=== PATIENT | female | born 1960 | race Caucasian/White ===

== ENCOUNTER 2017-11-21 16:02 | Inpatient (IN) | payer OTHER ==
[2017-11-21] MEDS ORDERED: ACETAMINOPHEN 325 MG TAB PO (18:30)
[2017-11-21] MEDS ORDERED: AL HYDROX/MG HYDROX/SIMETH 30 ML CUP PO (18:30)
[2017-11-21] MEDS ORDERED: ZOLPIDEM 5 MG TAB PO (18:30)
[2017-11-21] MEDS ORDERED: MAGNESIUM HYDROXIDE 30ML CUP PO (18:30)
[2017-11-21] MEDS ORDERED: LORAZEPAM 2 MG INJ IV (18:30)
[2017-11-21] MEDS ORDERED: HYDROCODONE/APAP (5/325) TAB PO (18:30)
[2017-11-21] MEDS ORDERED: ONDANSETRON 4 MG INJ IV (18:30)
[2017-11-21] MEDS: SOD CHLORIDE 0.9% 1,000 ML IV (19:59)
[2017-11-21] MEDS: GABAPENTIN 100 MG CAP PO (22:16)
[2017-11-21] MEDS: QUETIAPINE 25 MG TAB PO (22:16)
[2017-11-22 06:55] LABS: ADD MAN DIFF? NO
[2017-11-22 07:07] LABS: BASOPHILS % 0.7 % (0.0-2.0); EOSINOPHILS # 0.2 10^3/ul (0.0-0.5); EOSINOPHILS % 3.7 % (0.0-7.0); HEMATOCRIT 27.6 % (37.0-47.0); HEMOGLOBIN 8.4 g/dl (12.0-16.0); LYMPHOCYTES # 1.4 10^3/ul (0.8-2.9); LYMPHOCYTES % 24.4 % (15.0-51.0); MEAN CORPUSCULAR HGB CONC 30.4 g/dl (32.0-37.0); MONOCYTE # 0.5 10^3/ul (0.3-0.9); NEUTROPHIL # 3.5 10^3/ul (1.6-7.5); NEUTROPHILS % 62.8 % (39.0-77.0); RED CELL DISTRIBUTION WIDTH 14.9 % (11.5-14.5)
[2017-11-22 07:07] LABS: WHITE BLOOD COUNT 5.6 10^3/ul (4.8-10.8)
[2017-11-22 07:11] LABS: PLATELET COUNT 189 10^3/UL (140-415); POSITIVE DIFF @See below
[2017-11-22 07:27] LABS: ALANINE AMINOTRANSFERASE 21 IU/L (13-69); ALBUMIN 3.3 g/dl (3.3-4.9); ALKALINE PHOSPHATASE 80 IU/L (42-121); ANION GAP 11 (8-16); ASPARTATE AMINO TRANSFERASE 24 IU/L (15-46); BLOOD UREA NITROGEN 36 mg/dl (7-20); CALCIUM 8.6 mg/dl (8.4-10.2); CARBON DIOXIDE 25 mmol/L (21-31); CHLORIDE 108 mmol/L (97-110); CREATININE 0.85 mg/dl (0.44-1.00); GLUCOSE 93 mg/dl (70-220); POTASSIUM 4.1 mmol/L (3.5-5.1); SODIUM 140 mmol/L (135-144); TOTAL PROTEIN 6.6 g/dl (6.1-8.1)
[2017-11-22] MEDS: GABAPENTIN 100 MG CAP PO ×2 (09:31→20:43)
[2017-11-22] MEDS: SOD CHLORIDE 0.9% 1,000 ML IV ×2 (09:32→23:06)
[2017-11-22] MEDS: NICOTINE (21 MG/24 HR) PATCH TRANSDERM (12:30)
[2017-11-22] MEDS: METHADONE 10 MG TAB PO (17:19)
[2017-11-22] MEDS: QUETIAPINE 25 MG TAB PO (20:44)
[2017-11-22] MEDS: ALBUTEROL/IPRATROPIUM (NEB) 3 ML AMP HHN (20:46)
[2017-11-23] MEDS: ALBUTEROL/IPRATROPIUM (NEB) 3 ML AMP HHN ×2 (01:23→19:45)
[2017-11-23] MEDS: SOD CHLORIDE 0.9% 1,000 ML IV (04:06)
[2017-11-23] MEDS: PANTOPRAZOLE (EC) 40 MG TAB PO (05:57)
[2017-11-23 06:03] LABS: ADD MAN DIFF? NO
[2017-11-23 06:10] LABS: WHITE BLOOD COUNT 5.7 10^3/ul (4.8-10.8)
[2017-11-23 06:10] LABS: ABNORMAL IP MESSAGE 1; BASOPHILS % 0.5 % (0.0-2.0); EOSINOPHILS # 0.2 10^3/ul (0.0-0.5); HEMATOCRIT 24.9 % (37.0-47.0); HEMOGLOBIN 7.7 g/dl (12.0-16.0); LYMPHOCYTES # 1.6 10^3/ul (0.8-2.9); LYMPHOCYTES % 28.6 % (15.0-51.0); MEAN CORPUSCULAR HEMOGLOBIN 21.3 pg (29.0-33.0); MEAN CORPUSCULAR HGB CONC 30.9 g/dl (32.0-37.0); MEAN CORPUSCULAR VOLUME 68.8 fl (82.0-101.0); MONOCYTE # 0.5 10^3/ul (0.3-0.9); MONOCYTES % 8.7 % (0.0-11.0); NEUTROPHIL # 3.4 10^3/ul (1.6-7.5); NEUTROPHILS % 58.9 % (39.0-77.0); PLATELET COUNT 226 10^3/UL (140-415); RED BLOOD COUNT 3.62 10^6/ul (4.20-5.40); RED CELL DISTRIBUTION WIDTH 15.1 % (11.5-14.5)
[2017-11-23 06:23] LABS: MEAN PLATELET VOLUME 11.5 fl (7.4-10.4); POSITIVE DIFF @See below
[2017-11-23 06:50] LABS: ANION GAP 11 (8-16); BLOOD UREA NITROGEN 32 mg/dl (7-20); CALCIUM 8.6 mg/dl (8.4-10.2); CARBON DIOXIDE 26 mmol/L (21-31); CHLORIDE 106 mmol/L (97-110); CREATININE 0.89 mg/dl (0.44-1.00); GLUCOSE 100 mg/dl (70-220); POTASSIUM 3.6 mmol/L (3.5-5.1); SODIUM 139 mmol/L (135-144)
[2017-11-23] MEDS: NICOTINE (21 MG/24 HR) PATCH TRANSDERM (08:56)
[2017-11-23] MEDS: GABAPENTIN 100 MG CAP PO ×2 (08:56→21:06)
[2017-11-23] MEDS: METHADONE 10 MG TAB PO (08:56)
[2017-11-23] MEDS: BUSPIRONE 10 MG TAB NGT ×2 (14:15→21:06)
[2017-11-23] MEDS: SOD FERRIC GLUC COMPLX 125 MG in SOD CHLORIDE 0.9% 100 ML IVPB (17:31)
[2017-11-23] MEDS: QUETIAPINE 100 MG TAB PO (21:06)
[2017-11-24] MEDS: PANTOPRAZOLE (EC) 40 MG TAB PO (05:55)
[2017-11-24] MEDS: ALBUTEROL/IPRATROPIUM (NEB) 3 ML AMP HHN (06:11)
[2017-11-24 06:57] LABS: ADD MAN DIFF? NO
[2017-11-24 07:18] LABS: BASOPHILS % 0.9 % (0.0-2.0); EOSINOPHILS # 0.2 10^3/ul (0.0-0.5); EOSINOPHILS % 4.1 % (0.0-7.0); HEMATOCRIT 25.3 % (37.0-47.0); HEMOGLOBIN 7.8 g/dl (12.0-16.0); LYMPHOCYTES # 1.5 10^3/ul (0.8-2.9); LYMPHOCYTES % 33.2 % (15.0-51.0); MEAN CORPUSCULAR HGB CONC 30.8 g/dl (32.0-37.0); MEAN PLATELET VOLUME 10.3 fl (7.4-10.4); MONOCYTE # 0.4 10^3/ul (0.3-0.9); MONOCYTES % 9.6 % (0.0-11.0); NEUTROPHIL # 2.4 10^3/ul (1.6-7.5); NEUTROPHILS % 51.8 % (39.0-77.0); PLATELET COUNT 192 10^3/UL (140-415); RED BLOOD COUNT 3.72 10^6/ul (4.20-5.40); RED CELL DISTRIBUTION WIDTH 15.2 % (11.5-14.5)
[2017-11-24 07:18] LABS: WHITE BLOOD COUNT 4.6 10^3/ul (4.8-10.8)
[2017-11-24 07:22] LABS: POSITIVE DIFF @See below
[2017-11-24 07:25] LABS: ANION GAP 10 (8-16); BLOOD UREA NITROGEN 36 mg/dl (7-20); CALCIUM 8.8 mg/dl (8.4-10.2); CARBON DIOXIDE 23 mmol/L (21-31); CHLORIDE 112 mmol/L (97-110); CREATININE 0.89 mg/dl (0.44-1.00); GLUCOSE 94 mg/dl (70-220); POTASSIUM 4.3 mmol/L (3.5-5.1); SODIUM 141 mmol/L (135-144)
[2017-11-24] MEDS: BUSPIRONE 10 MG TAB NGT ×3 (08:47→20:58)
[2017-11-24] MEDS: CITALOPRAM 20 MG TAB PO (08:47)
[2017-11-24] MEDS: NICOTINE (21 MG/24 HR) PATCH TRANSDERM (08:48)
[2017-11-24] MEDS: GABAPENTIN 100 MG CAP PO ×2 (08:48→20:58)
[2017-11-24] MEDS: METHADONE 10 MG TAB PO (08:48)
[2017-11-24] MEDS: SOD FERRIC GLUC COMPLX 125 MG in SOD CHLORIDE 0.9% 100 ML IVPB (17:54)
[2017-11-24] MEDS: QUETIAPINE 100 MG TAB PO (20:58)
[2017-11-25] MEDS: PANTOPRAZOLE (EC) 40 MG TAB PO (06:19)
[2017-11-25] MEDS: CITALOPRAM 20 MG TAB PO (09:15)
[2017-11-25] MEDS: NICOTINE (21 MG/24 HR) PATCH TRANSDERM (09:16)
[2017-11-25] MEDS: BUSPIRONE 10 MG TAB NGT ×3 (09:17→20:58)
[2017-11-25] MEDS: GABAPENTIN 100 MG CAP PO ×2 (09:17→20:58)
[2017-11-25] MEDS: METHADONE 10 MG TAB PO (09:17)
[2017-11-25] MEDS: SOD FERRIC GLUC COMPLX 125 MG in SOD CHLORIDE 0.9% 100 ML IVPB (17:20)
[2017-11-25] MEDS: QUETIAPINE 100 MG TAB PO (20:58)
[2017-11-25] MEDS ORDERED: ALBUTEROL HFA 8 GM INHALER INH (21:00)
[2017-11-25] MEDS ORDERED: QUETIAPINE 100 MG TAB PO (21:00)
[2017-11-25] MEDS ORDERED: GABAPENTIN 300 MG CAP PO (21:00)
[2017-11-25] MEDS: clonAZEPAM 0.5 MG TAB PO (22:00)
[2017-11-26] MEDS: PANTOPRAZOLE (EC) 40 MG TAB PO (05:53)
[2017-11-26] MEDS: GABAPENTIN 100 MG CAP PO ×2 (08:35→21:03)
[2017-11-26] MEDS: BUSPIRONE 10 MG TAB NGT ×3 (08:35→21:03)
[2017-11-26] MEDS: CITALOPRAM 20 MG TAB PO (08:35)
[2017-11-26] MEDS: clonAZEPAM 0.5 MG TAB PO ×2 (08:35→21:03)
[2017-11-26] MEDS: NICOTINE (21 MG/24 HR) PATCH TRANSDERM (08:35)
[2017-11-26] MEDS: METHADONE 10 MG TAB PO (08:36)
[2017-11-26] MEDS ORDERED: CITALOPRAM 20 MG TAB PO (09:00)
[2017-11-26] MEDS: QUETIAPINE 100 MG TAB PO (21:04)
[2017-11-26] MEDS ORDERED: IBUPROFEN 600 MG TAB PO (22:30)
[2017-11-27] MEDS: PANTOPRAZOLE (EC) 40 MG TAB PO (05:18)
[2017-11-27] MEDS: METHADONE 10 MG TAB PO (08:12)
[2017-11-27] MEDS: clonAZEPAM 0.5 MG TAB PO ×2 (08:12→21:30)
[2017-11-27] MEDS: BUSPIRONE 10 MG TAB NGT ×3 (08:13→21:31)
[2017-11-27] MEDS: CITALOPRAM 20 MG TAB PO (08:13)
[2017-11-27] MEDS: GABAPENTIN 100 MG CAP PO ×2 (08:13→21:31)
[2017-11-27] MEDS: NICOTINE (21 MG/24 HR) PATCH TRANSDERM (08:14)
[2017-11-27] MEDS: CELECOXIB 200 MG CAP PO (18:00)
[2017-11-27] MEDS: traMADol 50 MG TAB PO (21:30)
[2017-11-27] MEDS: QUETIAPINE 100 MG TAB PO (21:31)
[2017-11-28] MEDS: PANTOPRAZOLE (EC) 40 MG TAB PO (06:21)
[2017-11-28] MEDS: traMADol 50 MG TAB PO ×3 (06:23→20:05)
[2017-11-28] MEDS: NICOTINE (21 MG/24 HR) PATCH TRANSDERM (08:35)
[2017-11-28] MEDS: CITALOPRAM 20 MG TAB PO (08:35)
[2017-11-28] MEDS: BUSPIRONE 10 MG TAB NGT ×3 (08:35→20:05)
[2017-11-28] MEDS: GABAPENTIN 100 MG CAP PO ×2 (08:35→20:05)
[2017-11-28] MEDS: METHADONE 10 MG TAB PO (08:36)
[2017-11-28] MEDS: clonAZEPAM 0.5 MG TAB PO ×2 (09:22→20:05)
[2017-11-28] MEDS ORDERED: COLLAGENASE 5 GM (UD JAR) TOP (13:30)
[2017-11-28] MEDS: COLLAGENASE 5 GM (UD JAR) TOP (15:33)
[2017-11-28] MEDS: QUETIAPINE 100 MG TAB PO (20:05)
[2017-11-29] MEDS: traMADol 50 MG TAB PO ×2 (04:50→13:43)
[2017-11-29] MEDS: PANTOPRAZOLE (EC) 40 MG TAB PO (04:50)
[2017-11-29] MEDS: ALBUTEROL/IPRATROPIUM (NEB) 3 ML AMP HHN (05:06)
[2017-11-29] MEDS: BUSPIRONE 10 MG TAB NGT ×2 (08:30→13:43)
[2017-11-29] MEDS: GABAPENTIN 100 MG CAP PO (08:30)
[2017-11-29] MEDS: METHADONE 10 MG TAB PO (08:30)
[2017-11-29] MEDS: clonAZEPAM 0.5 MG TAB PO (08:30)
[2017-11-29] MEDS: NICOTINE (21 MG/24 HR) PATCH TRANSDERM (08:30)
[2017-11-29] MEDS: CITALOPRAM 20 MG TAB PO (08:30)
[2017-11-29] MEDS: FUROSEMIDE 20 MG TAB PO (08:31)
[2017-11-29] MEDS: COLLAGENASE 5 GM (UD JAR) TOP (09:55)
== END 2017-11-29 15:50 | disposition left against medical advice (07) | DRG 683 ==
LOC: 5EC 11-26 11:27
DX: N17.9 Acute kidney failure, unspecified (principal); E87.1 Hypo-osmolality and hyponatremia; Z59.0 Homelessness; F25.1 Schizoaffective disorder, depressive type; I10 Essential (primary) hypertension; J44.9 Chronic obstructive pulmonary disease, unspecified; F17.200 Nicotine dependence, unspecified, uncomplicated; D50.9 Iron deficiency anemia, unspecified; R60.9 Edema, unspecified; Z87.01 Personal history of pneumonia (recurrent)
CPT/HCPCS: 80048; 80053; 85025; 94640; 97116; 97161

== ENCOUNTER 2018-06-13 23:27 | Emergency (ER) | payer OTHER ==
[2018-06-14] MEDS: HYDROCODONE/APAP (10/325) TAB PO (00:23)
[2018-06-14] MEDS: LISINOPRIL 20 MG TAB PO (00:47)
[2018-06-14] MEDS: clonAZEPAM 0.5 MG TAB PO (03:00)
== END 2018-06-14 06:12 | disposition home or self-care (01) ==
LOC: E/R 23:27
DX: I16.0 Hypertensive urgency (principal); F41.9 Anxiety disorder, unspecified; I10 Essential (primary) hypertension; J44.9 Chronic obstructive pulmonary disease, unspecified; Z76.0 Encounter for issue of repeat prescription
CPT/HCPCS: 71045; 71100; 93005; 99283-25